=== PATIENT | female | born 1975 | race Two or more races ===

== ENCOUNTER 2019-03-16 07:38 | Day surgery (SDC) | payer OTHER ==
[~2019-03-16 07:38] MED LIST: ALDOMET250 MG PO; ASA 81MG CHEW. PO; Aldomet PO; BABY ASPIRIN81 MG; CEFOXITIN IV; COZAAR25 MG; DAFLONEX-XL TA1 EACH; DECADRON P4 MG/ML-30 IH; DOLOGESIC CAPSU1 CAP PO; DOXYCYCLINE150 MG; METFORMIN HCL500 MG PO; PRADAXA75 MG; [UNRECOGNIZED DRUG - OTHER] IV
== END 2019-03-16 17:37 | disposition home or self-care (01) ==
LOC: CIR.AMB 07:38
PROVIDERS: Plastic Surgery
PROC: 0HBVXZZ (ICD-10-PCS; 2019-03-16)
PROC: 0HBV0ZZ Excision of Bilateral Breast, Open Approach (ICD-10-PCS; principal; 2019-03-16 08:30)
DX: N62 Hypertrophy of breast (principal); L91.0 Hypertrophic scar

== ENCOUNTER 2019-05-26 16:23 | Emergency (ER) | payer OTHER ==
[~2019-05-26] VITALS: Ht 154.9 cm; Wt 68.0 kg
== END 2019-05-26 22:45 | disposition home or self-care (01) ==
LOC: ER 16:23
DX: S93.402A Sprain of unspecified ligament of left ankle, initial encounter (principal); X50.0XXA Overexertion from strenuous movement or load, initial encounter; Y93.89 Activity, other specified; Y92.89 Other specified places as the place of occurrence of the external cause; Y99.8 Other external cause status

== ENCOUNTER 2019-12-05 14:38 | Emergency (ER) | payer OTHER ==
[~2019-12-05] VITALS: Ht 154.9 cm; Wt 72.6 kg
== END 2019-12-05 17:22 | disposition home or self-care (01) ==
LOC: ER 14:38
DX: I16.0 Hypertensive urgency (principal); I10 Essential (primary) hypertension

== ENCOUNTER 2020-01-05 14:16 | Emergency (ER) | payer OTHER ==
[~2020-01-05] VITALS: Ht 154.9 cm; Wt 74.8 kg
[2020-01-05] MEDS ORDERED: TOPROL XL25 M1 PO (14:31)
== END 2020-01-05 18:40 | disposition home or self-care (01) ==
LOC: ER 14:16
DX: R42 Dizziness and giddiness (principal); R53.1 Weakness

== ENCOUNTER 2021-01-19 13:30 | Outpatient (CLI) | payer OTHER ==
[~2021-01-19 13:30] MED LIST changes: +TOPROL XL25 M1 PO
== END 2021-01-19 16:52 | disposition home or self-care (01) ==
LOC: OFIC 805 13:30
PROVIDERS: ATTEND Otolaryngology Otology & Neurotology
DX: H93.A1 Pulsatile tinnitus, right ear (principal); H90.A11 Conductive hearing loss, unilateral, right ear with restricted hearing on the contralateral side

== ENCOUNTER 2021-01-29 10:53 | Outpatient (CLI) | payer OTHER | END 2021-01-29 11:07 | disposition home or self-care (01) | LOC: TOM 10:53 | PROVIDERS: ATTEND Otolaryngology Otology & Neurotology | DX: M89.8X8 Other specified disorders of bone, other site (principal); H90.A11 Conductive hearing loss, unilateral, right ear with restricted hearing on the contralateral side ==

== ENCOUNTER 2021-02-16 13:07 | Outpatient (CLI) | payer OTHER | END 2021-02-16 14:17 | disposition home or self-care (01) | LOC: OFIC 805 13:07 | PROVIDERS: ATTEND Otolaryngology Otology & Neurotology | DX: H80.81 Other otosclerosis, right ear (principal); H93.A1 Pulsatile tinnitus, right ear; H90.A11 Conductive hearing loss, unilateral, right ear with restricted hearing on the contralateral side ==

== ENCOUNTER → 2023-01-19 | Outpatient (CLI) | payer OTHER | END | disposition home or self-care (01) | LOC: NUCLEAR 07:00 | PROVIDERS: ATTEND Internal Medicine Hematology & Oncology | DX: C73 Malignant neoplasm of thyroid gland (principal); E05.91 Thyrotoxicosis, unspecified with thyrotoxic crisis or storm | CPT/HCPCS: 78014; A9512 ==

== ENCOUNTER 2024-01-09 11:06 | Outpatient (CLI) | payer OTHER | END 2024-01-09 11:17 | disposition home or self-care (01) | LOC: RAD 11:06 | PROVIDERS: ATTEND Orthopaedic Surgery | DX: M25.561 Pain in right knee (principal); M25.562 Pain in left knee | CPT/HCPCS: 73721 ==